=== PATIENT | female | born 1955 | race Two or more races ===

== ENCOUNTER 2025-08-29 19:19 | Emergency (ER) | payer MEDICAID, SELFPAY ==
[2025-08-29 19:53] VITALS: BP 182/82; PULSE 73; RESP 18; TEMP 36.8; O2SAT 96
--- NOTE | 2025-08-29 19:58 | EKG_ITS ---
[facility] Test Date: 2025-08-29 Pat Name: GEE MONSALVE Department: Room: - Gender: Female Health Education Specialist: : [id number] Requested By: Shayna Parsons Order Number: [id number] Reading MD: Shayna Parsons Measurements Intervals [place] Switch Rate: 94 P: 61 IN: 175 QRS: -22 QRSD: 98 T: 57 QT: 362 QTc: 454 Interpretive Statements SINUS RHYTHM BORDERLINE LEFT AXIS DEVIATION [QRS AXIS < -20] Compared to ECG 01/03/2024 08:40:59 No significant changes /store/S0/[id number]/[id number].pdf
--- NOTE | 2025-08-29 20:19 | PD.EDDIZZY ---
ED Dizzyness RME/HPI General Chief Complaint: Headache Stated Complaint: HIGH BLOOD PRESSURE, HERRERA, NAUSEA Time Seen by Provider: 08/29/25 20:02 Arrival date/time: 08/29/25 19:19 RME / HPI RME / HPI Narrative: CC: high blood pressure Patient is a 70-year-old female with a past medical history of hypertension, hyperlipidemia, per patient possible CKD who is following nephrology for history of left superior parathyroidectomy (01/05/2024) who presented to the emergency room via private vehicle with a chief complaint of hypertension noted at home, nausea, and feeling anxious. Stated symptoms began earlier this evening and noted elevated systolic blood pressure greater 180 at home. Patient's home medications for hypertension medication includes losartan, hydrochlorothiazide, and metoprolol. Primary care provider discontinued amlodipine, but patient presented today after she noticed increase in blood pressure at home. Patient also complaining of dizziness made worse with walking but not positional. Denied any loss of consciousness. Patient denied chest pain. Patient denied any sick contacts. Patient denied any fevers. Area. Patient stated urination and burning sensation out bladder region. Previously patient had been prescribed antibiotics as an outpatient Related Data Home Medications ?Medication ?Instructions ?Recorded ?Confirmed metoprolol tartrate 50 mg tablet 50 mg PO DAILY #0 tabs 07/29/15 08/29/25 losartan 100 mg tablet 100 mg PO QDAY 01/10/19 08/29/25 hydrochlorothiazide 12.5 mg tablet 12.5 mg PO QDAY 11/30/19 08/29/25 ezetimibe 10 mg tablet (Zetia) 10 mg PO QDAY 01/03/24 01/04/24 rosuvastatin 40 mg tablet 40 mg PO QDAY 01/03/24 08/29/25 Previous Rx's ?Medication ?Instructions ?Recorded docusate sodium 100 mg capsule 100 mg PO BID #40 caps 01/04/24 (Colace) hydrocodone 5 mg-acetaminophen 325 1 tab PO Q8HR PRN pain (scale 01/04/24 mg tablet score 7-10) #10 tabs nitrofurantoin macrocrystal 100 mg 100 mg PO BID Cystitis 5 days #10 08/29/25 capsule caps Allergies Allergy/AdvReac Type Severity Reaction Status Date / Time No Known Allergies Allergy Verified 08/29/25 19:20 Review of Systems Review of Systems Narrative Review of Systems: General appearance: NO weight change, NO fatigue, NO weakness, NO fever, NO chills, NO night sweats, No cough Skin: NO rash, NO itching, NO sores, NO moles HEENT: NO Trauma, NO nausea, NO vomiting, NO visual changes, NO blurry vision, NO double vision, NO tinnitus, NO vertigo, NO ear discharge, NO rhinorrhea, NO stuffiness, NO sneezing, NO allergy, NO epistaxis. NO Hoarseness, NO sore throat, NO swollen neck. Cardiac: NO Palpitations, NO dyspnea on exertion, NO orthopnea, NO paroxysmal nocturnal dyspnea, NO edema Respiratory: NO Shortness of Breath, NO Wheezing, NO Cough, NO Sputum, NO hemoptysis GI:NO appetite, NO nausea, NO vomiting, NO dysphagia, NO changes in bowel frequency, NO stool color, NO diarrhea, NO constipation, NO hemetemesis, NO hemorrhoids, NO melena, NO hematechezia, NO abdominal pain, NO jaundice Renal: Burning sensation at bladder region, Yes frequency, NO hesitancy, NO urgency, NO hematuria, NO nocturia, NO incontinence MSK: NO muscle weakness, NO gout, NO arthritis, NO muscle stiffness Neuro: Yes headaches, NO tremors, NO weakness, NO paralysis, NO seizures, NO loss of consciousness, NO numbness. Hem: NO anemia, NO easy bruising/bleeding, NO petechiae, NO purpura Endo: NO heat/cold intolerance, NO excessive sweating, NO polyuria, NO polydipsia, NO polyphagia, NO thyroid problems, NO diabetes Pysch: NO mood, NO anxiety, NO depression ED Exam Narrative Physical exam: General Appearance: Alert & Oriented X3, well-nourished female who is sitting in bed appearing mildy anxious HEENT: Skull symmetrical and atraumatic. Conjunctivae pink and moist. Pupils equal, round, reactive to light and accommodation (PERRL). External ear without lesion or discharge. Straight, nares patient, mucosa pink, no discharge. Cardio: tachycardic Rate and Rhythm with S1 and S2 heart sounds. No murmurs or extra heart sounds auscultated. No bruits on carotid auscultation. No peripheral edema or cyanosis. Lungs: Symmetric with good expansion. Chest and back non-tender. Breath sounds vesicular without crackles, wheezing or rhonchi Abdomen: Non-tender, Non-distended, Normal Reactive Bowel Sounds Neuro: Alert, cooperative, oriented to person, place, and time. Speech clear. CN grossly intact. Upper motor strength 5/5 and Lower motor strength 5/5. Sensation intact. Course Quality Measures none (ambulatory ) Orders Category Date Time Status Miscellaneous Nursing Order X1 Care 08/29/25 20:14 Active Orthostatic Vitals X1 Care 08/29/25 20:[address] abdomen pelvis wo con Stat Exams 08/29/25 20:[address] head/brain wo con Stat Exams 08/29/25 20:48 Completed US gall bladder Stat Exams 08/29/25 22:09 Ordered CBC Stat Lab 08/29/25 20:37 Completed CMP [Comprehensive Metabolic Panel] Stat Lab 08/29/25 20:37 Completed Drug Screen,Urine Stat Lab 08/29/25 20:34 Completed LDH (Lactate Dehydrogenase) Stat Lab 08/29/25 20:37 Completed Magnesium Stat Lab 08/29/25 20:37 Completed Partial Thromboplastin Time Stat Lab 08/29/25 20:37 Completed Prothrombin Time with INR Stat Lab 08/29/25 20:37 Completed TSH [Thyroid Stimulating Hormone] Stat Lab 08/29/25 20:37 Completed Troponin I Stat Lab 08/29/25 20:37 Completed Urinalysis, C/S if Indicated Stat Lab 08/29/25 20:34 Completed Aspirin Med 08/29/25 19:59 Discontinued 325 mg PO X1 ONE Aspirin Chew Med 08/29/25 20:00 Discontinued 324 mg PO X1 ONE Ondansetron Odt [Zofran Odt] Med 08/29/25 20:13 Discontinued 4 mg PO X1 ONE hydrALAZINE HCL [Apresoline] Med 08/29/25 20:13 Discontinued 10 mg PO X1 ONE hydrOXYzine HCL [Atarax] Med 08/29/25 22:22 Discontinued 25 mg PO X1 ONE EKG (RT) Stat RT 08/29/25 19:58 Draft Vital Signs Vital signs: Vital Signs Temperature 98.2 F 08/29/25 19:53 Pulse Rate 73 08/29/25 19:53 Respiratory Rate 18 08/29/25 19:53 Blood Pressure 182/82 H 08/29/25 19:53 Pulse Oximetry (%) 96 08/29/25 19:53 Oxygen Delivery Method Room Air 08/29/25 19:53 Dizziness Patient data External records reviewed:: [facility] previous records Clinical information provided by:: patient Social determinants that could affect healthcare access:: none Patient has the following chronic illnesses:: HLD and HTN How is presenting disease/condition affected by chronic disease/condition?: exacerbated by (uncontrolled HTN ) Evaluation data The following diagnostics were reviewed and interpreted by me:: lab results and radiology exam(s) Lab and/or radiology exams considered but not ordered:: None Interpretation Summary: Patient is a 62-year-old female with a past medical history of hyperlipidemia and hypertension who presented with the emergency room with uncontrolled hypertension complaining of dizziness and headache. Dizziness and headaches likely secondary to uncontrolled hypertension as abdomen/pelvis CT noted to show atrophic kidney on the left side with calcification no hydronephrosis noted. Patient is recommended to follow-up with nephrology given changes in blood pressure or primary care provider to make further adjustments. EKG negative troponin negative ACS less likely. CT head negative for any acute changes, but retention cyst noted in the right maxillary antrum, patient is to follow-up with the neurology via PCP referral. Patient complaining of suprapubic burning with urination, UA negative, but abdomen CT noted cystitis pattern. Prophylactic nitrofurantoin return prescribed for the next 5 days. Please avoid NSAIDs given kideny function. - The patient's plan was discussed with attending Dr. Donna Parsons MD PGY2 Internal Medicine Medications / Prescriptions Medications or Prescriptions considered but not ordered:: None Medication administrations:: Medication Administration History Discontinued Medications Aspirin (Aspirin 325 Mg Tablet) 325 mg PO X1 ONE Stop: 08/29/25 20:00 Last Admin: 08/29/25 20:53 Dose: Not Given Documented By: DT Non-Admin Reason: Cancelled by Provider Aspirin (Aspirin 81 Mg Chew) 324 mg PO X1 ONE Stop: 08/29/25 20:01 Last Admin: 08/29/25 21:05 Dose: Not Given Documented By: DT Non-Admin Reason: Cancelled by Provider Hydralazine HCl (Hydralazine Hcl 10 Mg Tablet) 10 mg PO X1 ONE Stop: 08/29/25 20:14 Last Admin: 08/29/25 20:52 Dose: 10 mg Documented By: DT Hydroxyzine HCl (Hydroxyzine Hcl 25 Mg Tablet) 25 mg PO X1 ONE Stop: 08/29/25 22:23 Ondansetron HCl (Ondansetron Odt 4 Mg Tabrap) 4 mg PO X1 ONE; Protocol Stop: 08/29/25 20:14 Last Admin: 08/29/25 20:53 Dose: Not Given Documented By: DT Non-Admin Reason: Cancelled by Provider same as above Consultations Consultation(s) initiated? (list below): No Diagnosis Dizziness Differential Diagnosis: orthostatic hypotension and other (uncontrolled HTN vs head hemorrhage ) Most likely diagnosis given after review of the tests above:: Patient is a 62-year-old female with a past medical history of hyperlipidemia and hypertension who presented with the emergency room with uncontrolled hypertension complaining of dizziness and headache. Dizziness and headaches likely secondary to uncontrolled hypertension as abdomen/pelvis CT noted to show atrophic kidney on the left side with calcification no hydronephrosis noted. Patient is recommended to follow-up with nephrology given changes in blood pressure or primary care provider to make further adjustments. EKG negative troponin negative ACS less likely. CT head negative for any acute changes, but retention cyst noted in the right maxillary antrum, patient is to follow-up with the neurology via PCP referral. Patient complaining of suprapubic burning with urination, UA negative, but abdomen CT noted cystitis pattern. Prophylactic nitrofurantoin return prescribed for the next 5 days. #Uncontroleld HTN #Cystitis Admission Indicated Admission indicated?: not indicated Admission Request Was there a request for admission?: No Disposition Plan Disposition Plan: Discharge Discharge Attestation Discharge Attestation: The patient and all family members were given an opportunity to ask questions and understood the discharge instructions. Discharge instructions specifically effects, indications for sooner follow up or return to the emergency department, and the expected course of current diagnosis. Patient condition: Stable Discharge Plan Plan Patient Disposition: HOME (Self Care) Patient condition on transfer: Stable Health Concerns: Instructions - Please monitor your blood pressure at home and take it twice daily. Please follow-up with your primary doctor to make adjustments to any blood pressure medication as needed. - Please avoid NSAIDs such as such as ibuprofen given left kidney noted to be atrophic and concern for chronic kidney disease. Please follow up with your turbine attendant. - Please have primary care make referral for neurology as CT head noted a cyst in the right maxillary antrum. -Please complete course of antibiotics of nitrofurantoin 100 mg twice daily for the next 5 days. -Please follow up with your primary care provider within one week of discharge -If your symptoms worsen,please seek immediate medical attention and return to your nearest emergency room -If you do not have a primary care provider, [facility] [place] [address], [place] [address], Prescriptions/Referrals Prescriptions/Med Rec: New nitrofurantoin macrocrystal 100 mg capsule 100 mg PO BID 5 Days Qty: 10 0RF Rx Instructions: must administer with a meal/food Continued metoprolol tartrate 50 MG tablet 50 mg PO DAILY Qty: 0 losartan 100 mg Tablet 100 mg PO QDAY hydrochlorothiazide 12.5 mg Tablet 12.5 mg PO QDAY ezetimibe [Zetia] 10 mg Tablet 10 mg PO QDAY rosuvastatin 40 mg Tablet 40 mg PO QDAY docusate sodium [Colace] 100 mg capsule 100 mg PO BID Qty: 40 0RF hydrocodone-acetaminophen 5-325 mg tablet 1 tab PO Q8HR MDD 3 PRN (Reason: pain (scale score 7-10)) Qty: 10 0RF Discontinued ibuprofen 600 mg tablet 600 mg PO Q8H PRN (Reason: pain (scale score 4-6)) Qty: 15 0RF Referrals: Kg Islas MD [Primary Care Provider, Family Practice] - In 1 week Problem List Clinical Impression: Cystitis, Hypertension, uncontrolled Patient/Caregiver Discharge Instructions Education Materials: ED Chronic Kidney Disease (CKD), ED High Blood Pressure ..., ED CYSTITIS Female Adult Print Language: Hong Konger Stand Alone Forms: [employer] Award Info., Patient Portal Info Letter
[2025-08-29 20:39] VITALS: BP 177/110; PULSE 99; RESP 14; O2SAT 99
[2025-08-29 20:39] LABS: Collection Type, Urine Clean Catch
[2025-08-29 20:44] LABS: Basophils # (Auto) 0.0 Thou/mm3 (0.0-0.2); Basophils % (Auto) 0 % (0-2.5); Eosinophils # (Auto) 0.2 Thou/mm3 (0.0-0.5); Eosinophils % (Auto) 2 % (0-10); Hematocrit 39.6 % (36.0-46.0); Hemoglobin 13.4 g/dL (12.0-16.0); Immature Granulocytes Auto 0.01 Thou/mm3 (0.00-0.00); Lymphocytes # (Auto) 2.2 Thou/mm3 (1.0-4.8); Lymphocytes % (Auto) 35 % (10-50); Mean Corpuscular HGB Conc 33.8 g/dl (31.0-37.0); Mean Corpuscular Hemoglobin 29.2 pg (25.0-35.0); Mean Corpuscular Volume 86 fL (80-100); Monocytes # (Auto) 0.4 Thou/mm3 (0.0-0.8); Monocytes % (Auto) 6 % (0-12); Neutrophils # (Auto) 3.6 Thou/mm3 (1.8-7.7); Neutrophils % (Auto) 56 % (37-80); Nucleated Red Blood Cell # 0.00 Thou/mm3 (0.00-0.00); Nucleated Red Blood Cell % 0 /100 WBC (0); Platelet Count 229 Thou/mm3 (140-440); RDW Standard Deviation 42.8 fL (36.4-46.3); Red Blood Count 4.59 Miln/mm3 (4.00-5.20); White Blood Count 6.4 Thou/mm3 (3.6-11.0)
[2025-08-29 20:45] LABS: Bilirubin,Urine Negative (Negative); Blood,Urine Negative (Negative); Clarity,Urine Clear (Clear/Hazy); Color,Urine Colorless (Lt Yel-Yel); Culture Indicated,Urine Not Indicated; Glucose, Urine Negative (Negative); Ketones,Urine Negative (Negative); Leukocyte Esterase,Urine Negative (Negative); Nitrite,Urine Negative (Negative); PH,Urine 7.0 (5.0-7.0); Protein,Urine Negative (Neg - Trace); RBC,Urine 1 /hpf (0-3); Specific Gravity,Urine 1.009 (1.001-1.035); Squamous Epithelial Cell,Urine 1 /hpf (0-5); Urobilinogen,Urine Negative mg/dL (0.0-1.0); WBC,Urine 1 /hpf (0-5)
--- NOTE | 2025-08-29 20:48 | XR_ITS ---
Examination: CT abdomen and pelvis without contrast. Coronal 3-D reconstructions. Sagittal 2-D reconstructions. Date and time of exam: August 29, 2025, 2119, comparison September 08, 2021 INDICATIONS: Flank pain abdominal pain today CTDI: vol (mGy): 6.30 DLP: (mGycm): 328 Technique: Axial images of the abdomen have been obtained, 3 mm slice thickness Intravenous contrast material has not been administered. Low dose protocols were performed. One or more of the following dose reduction techniques were used; automated exposure control, adjustment of the mA and/or KV according to patient size, use of iterative reconstruction technique. Findings: Small liver cysts Suspicious for gallstones axial image 42 Spleen not enlarged No pancreatic or adrenal mass. End-stage atrophic left kidney with calcifications no hydronephrosis No ureteral calculi Aorta normal size Normal appendix Atrophic uterus No bladder mass or bladder calculi, air droplets in the urinary bladder mild urinary bladder wall thickening Prominent osteopenia IMPRESSION: Recommend hepatobiliary sonography to confirm gallstones End-stage atrophic left kidney with calcifications, no hydronephrosis or ureteral calculi Normal appendix Cystitis pattern
--- NOTE | 2025-08-29 20:48 | XR_ITS ---
Examination: CT brain head without contrast. 2-D sagittal coronal reconstructions Date and time of exam: August 29, 2025, 2112 hours INDICATIONS: High blood pressure headache nausea today CTDI: vol (mGy): 45.8 DLP: (mGycm): 887 Technique: Multiple CT axial sections of the brain have been obtained, 5 mm slice thickness. Contrast has not been administered. 2-D sagittal, coronal reconstructions have been obtained Low dose protocols were performed. One or more of the following dose reduction techniques were used; automated exposure control, adjustment of the mA and/or KV according to patient size, use of iterative reconstruction technique. Findings: No significant ventricular enlargement. Intra-axial or extra-axial hemorrhage density is not seen. No mass effect or midline shift Basal cisterns are not remarkable. Fourth ventricle is midline. Cranial vault intact. Impression: Negative for acute hemorrhage, mass effect or midline shift Large retention cysts in the right maxillary antrum
[2025-08-29 20:52] VITALS: BP 177/110; PULSE 83
[2025-08-29 20:59] LABS: INR 0.9 (0.9-1.3); Partial Thromboplastin Time 28.1 Seconds (22.0-36.0); Prothrombin Time 10.0 Seconds (9.0-12.2)
[2025-08-29 21:13] VITALS: BP 162/71; BP 190/94; PULSE 86; PULSE 97
[2025-08-29 21:44] VITALS: BP 154/81; PULSE 95; RESP 14; O2SAT 99
[2025-08-29 21:57] LABS: Amphetamine/Methamp Scrn,U Negative (Negative); Barbiturate Screen,Urine Negative (Negative); Benzodiazepines Screen,Urine Negative (Negative); Benzoylecgonine Screen, Ur Negative (Negative); Fentanyl Screen,Urine Negative (Negative); Opiate Screen,Urine Negative (Negative); THC Screen,Urine Negative (Negative)
[2025-08-29 22:30] LABS: Alanine Aminotransferase 27 U/L (10-49); Albumin, Serum 4.9 gm/dL (3.4-4.8); Albumin/Globulin Ratio 1.8 (1.2-2.2); Alkaline Phosphatase 114 U/L (46-116); Anion Gap 12 (7-16); Aspartate Amino Transferase 32 U/L (0-34); BUN/Creatinine Ratio 15 Ratio (12-20); Bilirubin,Total 0.3 mg/dL (0.3-1.2); Blood Urea Nitrogen 18 mg/dL (9-23); Calcium 10.0 mg/dL (8.3-10.6); Calcium (Corrected) 10.0 mg/dL (8.5-10.1); Carbon Dioxide 26.0 mMol/L (20.0-31.0); Chloride 105 mMol/L (98-107); Creatinine (Component) 1.2 mg/dL (0.6-1.3); Globulin 2.8 gm/dL (2.3-3.5); Glucose 135 mg/dL (74-106); LDH (Lactate Dehydrogenase) 318 U/L (120-246); Magnesium 2.0 mg/dL (1.6-2.6); Osmolality,Calculated 288 (275-295); Potassium 3.5 mMol/L (3.4-5.1); Sodium 143 mMol/L (136-145); Thyroid Stimulating Hormone 3.28 uIU/mL (0.55-4.78); Total Protein 7.7 gm/dL (5.7-8.2); Troponin I < 0.020 ng/mL (0.0-0.045); eGFR 49 See Note
[2025-08-29 22:59] VITALS: BP 150/92; PULSE 78; RESP 14; TEMP 37; O2SAT 99
== END 2025-08-29 23:02 | disposition home or self-care (01) ==
PROVIDERS: Emergency Provider Emergency Medicine; PCP Family Medicine
DX: N30.90 Cystitis, unspecified without hematuria (principal); I10 Essential (primary) hypertension; E78.5 Hyperlipidemia, unspecified
CPT/HCPCS: 36415; 70450; 74176; 80053; 80307; 81001; 83615; 83735; 83880; 84443; 84484; 85025; 85610; 85730; 93005; 99283; Q0162; A9270